=== PATIENT | male | born 1965 | race American Indian/Alaskan Native ===

== ENCOUNTER 2017-02-14 16:54 | Emergency (ER) | payer SELFPAY | END 2017-02-15 01:35 | disposition left against medical advice (07) | LOC: ED 16:54 | DX: M54.5 Low back pain (principal); Z53.21 Procedure and treatment not carried out due to patient leaving prior to being seen by health care provider ==

== ENCOUNTER 2018-04-12 22:12 | Emergency (ER) | payer OTHER ==
[2018-04-12 23:32] LABS: Bilirubin,Urine NEG (Negative); Blood,Urine MOD (Negative); Color,Urine Yellow (Yellow); Mucus,Urine 2+ /HPF; Protein,Urine <15 mg/dL mg/dL (Negative); Urobilinogen,Urine < 2.0 mg/dL (<2.0)
[2018-04-12] MEDS ORDERED: NACL 0.9% 1000 ML 0 ML ONE (23:52)
--- NOTE | 2018-04-13 07:37 | Emergency Department Report ---
ED Male HPI - General Chief complaint: Urogenital-Male Stated complaint: BURN TO PEE Time Seen by Provider: 04/13/18 07:25 Source: patient Mode of arrival: Ambulatory Limitations: No Limitations - History of Present Illness Initial comments: 52-year-old male presents to the ED for STD exposure. Patient states he was informed that he may have recently been exposed to chlamydia. Patient is complaining of 2 days of penile discharge with slight burning with urination. Denies fevers chills testicular swelling or abdominal pain. Patient is awake alert and oriented 3 nontoxic appearing. Denies any hematuria. Denies any abdominal or flank pain. Patient states he has had chlamydia and gonorrhea in the past. MD Complaint: penile discharge, dysuria Onset/Timin -: days(s) Location: penis Quality: burning Consistency: intermittent discharge - Related Data Previous Rx's Medication Instructions Recorded Last Taken Type metroNIDAZOLE [Metronidazole] 1,000 mg PO BID #4 tablet 04/13/18 Unknown Rx Allergies Allergy/AdvReac Type Severity Reaction Status Date / Time No Known Allergies Allergy Verified 04/12/18 22:34 ED Review of Systems ROS: Stated complaint: BURN TO PEE Other details as noted in HPI Constitutional: denies: chills, fever Eyes: denies: eye pain, eye discharge, vision change ENT: denies: ear pain, throat pain Respiratory: denies: cough, shortness of breath, wheezing Cardiovascular: denies: chest pain, palpitations Endocrine: no symptoms reported Gastrointestinal: denies: abdominal pain, nausea, diarrhea Genitourinary: dysuria, discharge. denies: urgency Musculoskeletal: denies: back pain, joint swelling, arthralgia Skin: denies: rash, lesions Neurological: denies: headache, weakness, paresthesias Psychiatric: denies: anxiety, depression Hematological/Lymphatic: denies: easy bleeding, easy bruising ED Past Medical Hx - Past Medical History Hx Hypertension: Yes - Surgical History Past Surgical History?: No - Social History Smoking Status: Never Smoker Substance Use Type: Alcohol - Medications Home Medications: Home Medications Medication Instructions Recorded Confirmed Last Taken Type metroNIDAZOLE [Metronidazole] 1,000 mg PO BID #4 tablet 04/13/18 Unknown Rx ED Physical Exam - General Limitations: No Limitations General appearance: alert, in no apparent distress - Head Head exam: Present: atraumatic, normocephalic - Eye Eye exam: Present: normal appearance - ENT ENT exam: Present: mucous membranes moist - Neck Neck exam: Present: normal inspection - Respiratory Respiratory exam: Present: normal lung sounds bilaterally. Absent: respiratory distress - Cardiovascular Cardiovascular Exam: Present: regular rate, normal rhythm. Absent: systolic murmur, diastolic murmur, rubs, gallop - GI/Abdominal GI/Abdominal exam: Present: soft, normal bowel sounds - Rectal Rectal exam: Present: deferred - exam: Present: urethral discharge (yellow whitish urethral discharge on palpation) - Extremities Exam Extremities exam: Present: normal inspection - Back Exam Back exam: Present: normal inspection - Neurological Exam Neurological exam: Present: alert, oriented X3 - Psychiatric Psychiatric exam: Present: normal affect, normal mood - Skin Skin exam: Present: warm, dry, intact, normal color. Absent: rash ED Course Vital Signs 04/12/18 22:25 Temperature 97.9 F Pulse Rate 67 Respiratory 19 Rate Blood Pressure 136/91 O2 Sat by Pulse 98 Oximetry ED Medical Decision Making - Medical Decision Making A/P: Urethritis/STD exposure 1-patient empirically treated with azithromycin and ceftriaxone. course of metronidazole to cover empirically for possible Trichomonas exposure 2-GC cultures sent 3-patient given follow-up with primary care Critical care attestation.: If time is entered above; I have spent that time in minutes in the direct care of this critically ill patient, excluding procedure time. ED Disposition Clinical Impression: Urethritis Disposition: DC-01 TO HOME OR SELFCARE Is pt being admited?: No Does the pt Need Aspirin: No Condition: Undetermined Instructions: Nonspecific Urethritis in Men (ED) Prescriptions: metroNIDAZOLE [Metronidazole] 1,000 mg PO BID #4 tablet Referrals: [facility] [Provider Group] - 3-5 Days [facility] [Outside] - 3-5 Days Forms: STI Treatment and Prevention, Work/School Release Form(ED) Time of Disposition: 07:52
[2018-04-13] MEDS ORDERED: ROCEPHIN IM ONE (07:49)
[2018-04-13] MEDS ORDERED: ZITHROMAX PO ONE ×2 (07:50→07:56)
[2018-04-13] MEDS ORDERED: ZITHROMAX ONE (07:55)
[2018-04-13 08:04] VITALS: BP 138/90
== END 2018-04-13 08:28 | disposition home or self-care (01) ==
LOC: ED 22:12
DX: N34.2 Other urethritis (principal); I10 Essential (primary) hypertension
CPT/HCPCS: 81001; 96372; 99283; J0696; J7030

== ENCOUNTER 2022-01-18 02:52 | Emergency (ER) | payer SELFPAY ==
[2022-01-18] MEDS: AZITHROMYCIN 250 MG TAB PO ONE (04:27)
[2022-01-18] MEDS: LIDOCAINE-MPF (1%) 10 MG/1 ML VIAL 5 ML INFILTRATI ONE (04:28)
--- NOTE | 2022-01-18 05:11 | Emergency Department Report ---
ED Male HPI - General Chief complaint: Urogenital-Male Stated complaint: STD/BURNING URINATION Time Seen by Provider: 01/18/22 04:08 Source: patient Mode of arrival: Ambulatory Limitations: No Limitations - History of Present Illness Initial comments: Patient 56-year-old -[place] male who presents for STD exposure. Patient states partner advised they were positive for STD. Patient states dysuria frequency urgency and discharge that is brownish-yellow. Patient denies fevers chills no back pain. No hematuria. No nausea or vomiting. Patient denies other history. - Related Data Previous Rx's Medication Instructions Recorded Last Taken Type metroNIDAZOLE [Metronidazole] 1,000 mg PO BID #4 tablet 04/13/18 Unknown Rx Doxycycline Monohydrate 100 mg PO BID 7 Days #14 cap 01/18/22 Unknown Rx Allergies Allergy/AdvReac Type Severity Reaction Status Date / Time No Known Allergies Allergy Verified 04/12/18 22:34 ED Review of Systems ROS: Stated complaint: STD/BURNING URINATION Other details as noted in HPI Constitutional: denies: chills, fever Eyes: denies: eye pain, eye discharge, vision change ENT: denies: ear pain, throat pain Respiratory: denies: cough, shortness of breath, wheezing Cardiovascular: denies: chest pain, palpitations Endocrine: no symptoms reported Gastrointestinal: denies: abdominal pain, nausea, diarrhea Genitourinary: urgency, dysuria, frequency, discharge. denies: hematuria, testicular pain, testicular mass Musculoskeletal: denies: back pain, joint swelling, arthralgia Skin: denies: rash, lesions Neurological: denies: headache, weakness, paresthesias Psychiatric: denies: anxiety, depression Hematological/Lymphatic: denies: easy bleeding, easy bruising ED Past Medical Hx - Past Medical History Hx Hypertension: Yes - Social History Smoking Status: Never Smoker Substance Use Type: Alcohol - Medications Home Medications: Home Medications Medication Instructions Recorded Confirmed Last Taken Type metroNIDAZOLE [Metronidazole] 1,000 mg PO BID #4 tablet 04/13/18 Unknown Rx Doxycycline Monohydrate 100 mg PO BID 7 Days #14 cap 01/18/22 Unknown Rx ED Physical Exam - General Limitations: No Limitations General appearance: alert, in no apparent distress - Head Head exam: Present: atraumatic, normocephalic - Eye Eye exam: Present: normal appearance, EOMI Pupils: Present: normal accommodation - ENT ENT exam: Present: mucous membranes moist - Neck Neck exam: Present: normal inspection, full ROM. Absent: tenderness - Respiratory Respiratory exam: Present: normal lung sounds bilaterally. Absent: respiratory distress, wheezes, stridor - Cardiovascular Cardiovascular Exam: Present: regular rate, normal rhythm, normal heart sounds. Absent: systolic murmur, diastolic murmur, rubs, gallop - GI/Abdominal GI/Abdominal exam: Present: soft, normal bowel sounds. Absent: distended, tenderness, guarding, rebound, rigid, bruit, hernia - Rectal Rectal exam: Present: deferred - exam: Present: other (Deferred per patient) - Extremities Exam Extremities exam: Present: normal inspection, full ROM - Back Exam Back exam: Present: normal inspection, full ROM. Absent: CVA tenderness (R), CVA tenderness (L) - Neurological Exam Neurological exam: Present: alert, oriented X3, CN II-XII intact - Psychiatric Psychiatric exam: Present: normal affect, normal mood - Skin Skin exam: Present: warm, dry, intact, normal color. Absent: rash ED Course Vital Signs 01/18/22 03:11 Temperature 97.8 F Pulse Rate 69 Respiratory 18 Rate Blood Pressure 144/97 O2 Sat by Pulse 98 Oximetry ED Medical Decision Making - Medical Decision Making Patient treated for STD exposure. Patient will follow up with health department for HIV and HSV screening in 1 to 2 days. Patient verbalized agreement and understanding with discharge plan. Patient DC'd home in stable condition at this time. Critical care attestation.: If time is entered above; I have spent that time in minutes in the direct care of this critically ill patient, excluding procedure time. ED Disposition Clinical Impression: Exposure to STD Disposition: 01 HOME / SELF CARE / HOMELESS Is pt being admited?: No Does the pt Need Aspirin: No Condition: Stable Instructions: Safe Sex, Dyspareunia, Male Additional Instructions: Take all medication as prescribed, follow-up with the health department in 2 to 3 days for HIV and HSV screening. Return to emergency department should symptoms worsen. Prescriptions: Doxycycline Monohydrate 100 mg PO BID 7 Days #14 cap Referrals: [facility] [Outside] - 3-5 Days Forms: Work/School Release Form(ED) Time of Disposition: 05:13
[2022-01-18 05:40] VITALS: BP 140/85
== END 2022-01-18 05:38 | disposition home or self-care (01) ==
LOC: ED 02:52
DX: R30.0 Dysuria (principal); Z20.2 Contact with and (suspected) exposure to infections with a predominantly sexual mode of transmission; F10.20 Alcohol dependence, uncomplicated; I10 Essential (primary) hypertension
CPT/HCPCS: 96372; 99282; J0696; J3490